=== PATIENT | female | born 1995 | race American Indian/Alaskan Native ===

== ENCOUNTER 2018-06-03 12:00 | Emergency (ER) | payer OTHER ==
[2018-06-03 12:59] LABS: Basophils # (Auto) 0.1 K/mm3 (0.0-0.1); Basophils % (Auto) 0.6 % (0.0-1.8); Eosinophils # (Auto) 0.2 K/mm3 (0.0-0.4); Eosinophils % (Auto) 1.7 % (0.0-4.3); Hematocrit 37.5 % (30.3-42.9); Lymphocytes # (Auto) 2.2 K/mm3 (1.2-5.4); Lymphocytes % (Auto) 23.3 % (13.4-35.0); Mean Corpuscular HGB Conc 35 % (30-34); Mean Corpuscular Hemoglobin 32 pg (28-32); Mean Corpuscular Volume 94 fl (79-97); Monocytes # (Auto) 0.7 K/mm3 (0.0-0.8); Monocytes % (Auto) 7.8 % (0.0-7.3); Platelet Count 242 K/mm3 (140-440); Red Blood Count 4.01 M/mm3 (3.65-5.03); Red Cell Distribution Width 14.3 % (13.2-15.2)
[2018-06-03 13:11] LABS: BUN/Creatinine Ratio 10; Blood Urea Nitrogen 8 mg/dL (7-17); Hemolysis Index 2
[2018-06-03 13:13] LABS: INR 0.99 (0.87-1.13)
--- NOTE | 2018-06-03 14:59 | Emergency Department Report ---
ED Female HPI - General Chief complaint: Vaginal Bleeding Stated complaint: ABDOMINAL PAIN Time Seen by Provider: 06/03/18 14:58 Source: patient Mode of arrival: Wheelchair Limitations: No Limitations - History of Present Illness Initial comments: 23-year-old female past medical history none presents with complaint of one month of persistent vaginal bleeding. Last normal menstrual period before April 2018 was in March 2018. Patient denies fevers or chills flank pain increased urinary frequency dysuria and/or vaginal discharge other than vaginal vaginal bleeding. Denies smoking drinking or drug use. Patient is fully lucid awake alert and oriented 3 does not appear to be in acute distress, nontoxic appearing. Denies chest pain shortness of breath or palpitations. Does state that she gets some mild intermittent slightly crampy pain. Patient states that this has been ongoing intermittently for approximately one month. MD Complaint: vaginal bleeding Onset/Timin -: month(s) Location: suprapubic Radiation: suprapubic Quality: cramping, dull Consistency: intermittent Improves with: none Are you Now?: No Associated Symptoms: vaginal bleeding - Related Data Sexually active: Yes Previous Rx's Medication Instructions Recorded Last Taken Type Famotidine [Pepcid] 20 mg PO BID PRN #30 tablet 06/03/18 Unknown Rx Ibuprofen [Motrin] 800 mg PO Q8HR PRN #20 tablet 06/03/18 Unknown Rx Ondansetron [Zofran Odt] 4 mg PO Q8H PRN #12 tab.rapdis 06/03/18 Unknown Rx Allergies Allergy/AdvReac Type Severity Reaction Status Date / Time No Known Allergies Allergy Unverified 06/03/18 12:16 ED Review of Systems ROS: Stated complaint: ABDOMINAL PAIN Other details as noted in HPI Constitutional: denies: chills, fever Eyes: denies: eye pain, eye discharge, vision change ENT: denies: ear pain, throat pain Respiratory: denies: cough, shortness of breath, wheezing Cardiovascular: denies: chest pain, palpitations Endocrine: no symptoms reported Gastrointestinal: denies: abdominal pain, nausea, diarrhea Genitourinary: as per HPI, abnormal menses. denies: urgency, dysuria, discharge Musculoskeletal: denies: back pain, joint swelling, arthralgia Skin: denies: rash, lesions Neurological: denies: headache, weakness, paresthesias Psychiatric: denies: anxiety, depression Hematological/Lymphatic: denies: easy bleeding, easy bruising ED Past Medical Hx - Social History Smoking Status: Never Smoker Substance Use Type: None - Medications Home Medications: Home Medications Medication Instructions Recorded Confirmed Last Taken Type Famotidine [Pepcid] 20 mg PO BID PRN #30 tablet 06/03/18 Unknown Rx Ibuprofen [Motrin] 800 mg PO Q8HR PRN #20 tablet 06/03/18 Unknown Rx Ondansetron [Zofran Odt] 4 mg PO Q8H PRN #12 tab.rapdis 06/03/18 Unknown Rx ED Physical Exam - General Limitations: No Limitations General appearance: alert, in no apparent distress - Head Head exam: Present: atraumatic, normocephalic - Eye Eye exam: Present: normal appearance - ENT ENT exam: Present: mucous membranes moist - Neck Neck exam: Present: normal inspection - Respiratory Respiratory exam: Present: normal lung sounds bilaterally. Absent: respiratory distress - Cardiovascular Cardiovascular Exam: Present: regular rate, normal rhythm. Absent: systolic murmur, diastolic murmur, rubs, gallop - GI/Abdominal GI/Abdominal exam: Present: soft, normal bowel sounds - Speculum exam: Present: vaginal bleeding - Extremities Exam Extremities exam: Present: normal inspection - Back Exam Back exam: Present: normal inspection - Neurological Exam Neurological exam: Present: alert, oriented X3 - Psychiatric Psychiatric exam: Present: normal affect, normal mood - Skin Skin exam: Present: warm, dry, intact, normal color. Absent: rash ED Course Vital Signs 06/03/18 06/03/18 12:12 18:44 Temperature 99 F Pulse Rate 87 95 H Respiratory 16 18 Rate Blood Pressure 119/73 Blood Pressure 140/88 [Left] O2 Sat by Pulse 100 98 Oximetry ED Medical Decision Making - Lab Data Result diagrams: 06/03/18 12:31 06/03/18 12:32 - Medical Decision Making A/P: Dysfunctional uterine bleeding, ovarian cyst 1-labs are unremarkable 2-follow up with [facility] 3-ultrasound consistent with hemorrhagic cyst 4-Motrin when necessary. I emphasized importance of follow-up with outpatient [facility] to the patient. I advised her to begin taking iron supplementation over- the-counter Critical care attestation.: If time is entered above; I have spent that time in minutes in the direct care of this critically ill patient, excluding procedure time. ED Disposition Clinical Impression: Lower abdominal pain, Dysfunctional uterine bleeding Disposition: TO HOME OR SELFCARE Is pt being admited?: No Does the pt Need Aspirin: No Condition: Stable Instructions: Ovarian Cyst (ED), Iron Rich Diet (ED), Menorrhagia (ED) Prescriptions: Famotidine [Pepcid] 20 mg PO BID PRN #30 tablet PRN Reason: Indigestion Ibuprofen [Motrin] 800 mg PO Q8HR PRN #20 tablet PRN Reason: Pain , Severe (7-10) Ondansetron [Zofran Odt] 4 mg PO Q8H PRN #12 tab.rapdis PRN Reason: Nausea Referrals: [facility] [Provider Group] - 3-5 Days [facility] [Provider Group] - 3-5 Days [facility] [Provider Group] - 3-5 Days Forms: Work/School Release Form(ED) Time of Disposition: 18:42
[2018-06-03 15:42] LABS: HCG Qualitative,Urine Negative (Negative)
[2018-06-03 15:45] LABS: Bilirubin,Urine NEG (Negative); Blood,Urine LG (Negative); Color,Urine Yellow (Yellow); Mucus,Urine 2+ /HPF; Protein,Urine <15 mg/dL mg/dL (Negative)
[2018-06-03 15:47] LABS: RBC,Urine > 182.0 /HPF (0.0-6.0)
--- NOTE | 2018-06-03 17:32 | Ultrasound Report ---
FINAL REPORT EXAM: US PELVIS DUPLEX DOPPLER COMP HISTORY: pelvic pain persistent vag bleed TECHNIQUE: Ultrasound pelvis transabdominal with pulsed and color Doppler evaluation PRIORS: Correlated with today's transvaginal exam FINDINGS: The uterus measures 8.7 x 4.7 x 5.0 centimeters. Uterus is anteflexed Endometrial thickness 0.75 centimeters No focal myometrial abnormality identified Right ovary is 6.1 x 2.3 x 4.1 centimeters. There is a complex septated mass within the right ovary 2.7 centimeters could be hemorrhagic or involuting cyst. Consider followup in 2-3 months. Left ovary 2.5 x 2.9 x 3.1 centimeters. Normal sonographic appearance normal vascular flow seen on pulsed and color Doppler evaluation No free fluid identified within the lower pelvis IMPRESSION: Complex right ovarian mass may be hemorrhagic or involuting cyst. Consider follow-up in 2-3 months
--- NOTE | 2018-06-03 17:33 | Ultrasound Report ---
FINAL REPORT EXAM: US TRANSVAGINAL HISTORY: abdominal pain TECHNIQUE: Ultrasound pelvis transvaginal with pulsed and color Doppler evaluation PRIORS: None. FINDINGS: The uterus measures 8.7 x 4.7 x 5.0 centimeters. Uterus is anteflexed Endometrial thickness 0.75 centimeters No focal myometrial abnormality identified Right ovary is 6.1 x 2.3 x 4.1 centimeters. There is a complex septated mass within the right ovary 2.7 centimeters could be hemorrhagic or involuting cyst. Consider followup in 2-3 months. Left ovary 2.5 x 2.9 x 3.1 centimeters. Normal sonographic appearance normal vascular flow seen on pulsed and color Doppler evaluation No free fluid identified within the lower pelvis IMPRESSION: Complex right ovarian mass may be hemorrhagic or involuting cyst. Consider follow-up in 2-3 months
[2018-06-03 18:44] VITALS: BP 140/88
== END 2018-06-03 19:04 | disposition home or self-care (01) ==
LOC: ED 12:00
DX: N93.8 Other specified abnormal uterine and vaginal bleeding (principal); R10.30 Lower abdominal pain, unspecified
CPT/HCPCS: 36415; 76830; 80048; 81001; 81025; 85025; 85610; 87210; 87591; 93975; 99284